=== PATIENT | female | born 1955 | race Caucasian/White ===

== ENCOUNTER → 2021-10-13 | Outpatient (CLI) | payer OTHER | LOC: LAB 13:52 | DX: Z20.822 Contact with and (suspected) exposure to COVID-19 (principal) ==

== ENCOUNTER → 2022-02-13 | Outpatient (CLI) | payer OTHER | LOC: RAD 07:49 | DX: R05.9 Cough, unspecified (principal) ==

== ENCOUNTER → 2022-03-04 | Outpatient (CLI) | payer OTHER | LOC: RAD 17:26 | DX: D32.0 Benign neoplasm of cerebral meninges (principal) | CPT/HCPCS: A9585 ==

== ENCOUNTER → 2022-03-08 | Outpatient (CLI) | payer OTHER | LOC: LAB 07:08 | DX: G40.909 Epilepsy, unspecified, not intractable, without status epilepticus (principal) ==

== ENCOUNTER → 2022-03-10 | Outpatient (CLI) | payer OTHER | LOC: LAB 07:03 | DX: G40.909 Epilepsy, unspecified, not intractable, without status epilepticus (principal) ==

== ENCOUNTER → 2022-12-30 | Outpatient (CLI) | payer OTHER ==
[2022-12-30 08:05] LABS: BASO # 0.03 K/mm3 (0.02-0.10); EOS # 0.11 K/mm3 (0.04-0.40); EOS % 2.1 % (1.0-5.0); HEMATOCRIT 42.4 % (37.0-47.0); HEMOGLOBIN 14.2 g/dL (12.5-16.0); LYMPH# 1.89 K/mm3 (1.50-4.00); MEAN CELL VOLUME 87 fl (78-100); MEAN CORPUSCULAR HEMOGLOBIN 29 pg (27-31); MEAN CORPUSCULAR HGB CONC 34 g/dL (33-37); MEAN PLATELET VOLUME 8.7 fl (7.4-10.4); MONO # 0.36 K/mm3 (0.20-0.80); NEU # 2.95 K/mm3 (1.40-6.50); PLATELET COUNT 220 K/mm3 (130-400); RED BLOOD COUNT 4.85 M/mm3 (4.10-5.30); RED CELL DISTRIBUTION WIDTH 12.6 % (11.5-14.5); WHITE BLOOD COUNT 5.4 K/mm3 (4.8-10.8)
[2022-12-30 08:09] LABS: ALBUMIN 4.3 g/dL (3.4-4.8); POTASSIUM 4.5 mmol/L (3.5-5.1)
[2022-12-30 08:10] LABS: CALCIUM 9.8 mg/dL (8.3-10.5)
[2022-12-30 08:12] LABS: TOTAL PROTEIN 6.6 g/dL (6.2-8.1)
[2022-12-30 08:13] LABS: TOTAL BILIRUBIN 1.6 mg/dL (0.2-1.2)
== END ==
LOC: LAB 07:33
PROVIDERS: Nurse Practitioner
DX: Z13.820 Encounter for screening for osteoporosis (principal); R03.0 Elevated blood-pressure reading, without diagnosis of hypertension; M54.50 Low back pain, unspecified

== ENCOUNTER → 2023-01-25 | Outpatient (CLI) | payer OTHER | LOC: LAB 07:30 | DX: G40.909 Epilepsy, unspecified, not intractable, without status epilepticus (principal); I10 Essential (primary) hypertension ==

== ENCOUNTER 2023-09-28 08:08 | Outpatient (RCR) | payer OTHER, BC | END 2023-09-29 | LOC: PT | DX: M54.50 Low back pain, unspecified (principal) ==

== ENCOUNTER → 2023-09-28 | Outpatient (CLI) | payer MEDICARE, BC | LOC: MAMMO 09:00 | DX: Z12.31 Encounter for screening mammogram for malignant neoplasm of breast (principal); Z90.11 Acquired absence of right breast and nipple ==

== ENCOUNTER 2023-09-30 08:00 | Outpatient (RCR) | payer MEDICARE, BC ==
[2023-10-17] MEDS ORDERED: LEVETIRACETAM500 M2 PO (09:17)
[2023-10-17] MEDS ORDERED: LOSARTAN POTASS25 MG PO (09:17)
[2023-10-17] MEDS ORDERED: MAXALT10 M2 PO (09:18)
[2023-10-19] MEDS ORDERED: IPRATROPIUM BROM3 M1 IH (07:58)
[2023-10-19] MEDS ORDERED: NEB (08:00)
[2023-10-19] MEDS ORDERED: LEVOFLOXACIN750 MG PO (08:01)
[2023-10-25] MEDS ORDERED: MORGIDOX 2X100100 MG PO (20:06)
== END 2023-10-30 | disposition home or self-care (01) ==
LOC: PT
DX: M54.50 Low back pain, unspecified (principal)

== ENCOUNTER 2023-10-17 10:44 | Inpatient (IN) | payer MEDICARE, BC ==
[~2023-10-17] VITALS: Ht 162.6 cm; Wt 62.9 kg
--- NOTE | 2023-10-17 10:40 | NUR ---
PT. MOVED TO ROOM 206 FOR INPATIENT ADMIT FOR DEHYDRATION AND ELEVATED WBC. 20G INT TO RIGHT AC. DAUGHTER IN ROOM WITH PT.
[~2023-10-17 10:44] MED LIST: LEVETIRACETAM500 M2 PO; LOSARTAN POTASS25 MG PO; MAXALT10 M2 PO
[2023-10-17 11:32] VITALS: BP 118/69
[2023-10-17 11:34] VITALS: BP 118/69
[2023-10-17 11:52] LABS: URINE APPEARANCE CLOUDY (CLEAR); URINE COLOR YELLOW (YELLOW)
[2023-10-17 11:53] LABS: PH-URINE 5.5 (5.0 - 8.0); URINE BILIRUBIN NEGATIVE (NEGATIVE); URINE BLOOD TRACE (NEGATIVE); URINE GLUCOSE NEGATIVE (NEGATIVE); URINE KETONE NEGATIVE (NEGATIVE); URINE NITRATE NEGATIVE (NEGATIVE); URINE PROTEIN(semi-quant) TRACE (NEGATIVE)
[2023-10-17 11:54] LABS: URINE LEUKOCYTE ESTERASE NEGATIVE (NEGATIVE); URINE WBC >50 /hpf (0-3)
[2023-10-17 11:55] LABS: URINE MUCUS PRESENT (NOT PRESENT)
[2023-10-17 13:34] VITALS: BP 101/67
--- NOTE | 2023-10-17 14:47 | NUR ---
PT. UP TO BATHROOM TO VOID, STATES SHE MISSED THE HAT. REPORTS THAT SHE DID NOT HAVE ANY LOOSE STOOLS AT THIS TIME. REPORTS PAIN IMPROVED WITH DOSE OF FENTANYL.
[2023-10-17 17:58] VITALS: BP 103/55
--- NOTE | 2023-10-17 19:16 | NUR ---
PT WAS RESTING IN BED. STATED THAT SHE WOULD LIKE SOMETHING TO HELP HER SLEEP AT NIGHT. REPORTED HAVING NO PAIN OR ANY OTHER ISSUES.
--- NOTE | 2023-10-17 20:51 | NUR ---
PT WAS IN BED. REPORTING HAVING SLIGHT PAIN ON RIGHT SIDE. FENTYNAL GIVEN FOR PAIN/SLEEP. NS RUNNING AT 125MLS. NO SIGNS OF INFILTRATION. MEDICATION TAKEN PO WITHOUT PROBLEM. ASSESSMENT COMPLETE. O2 SAT 91% ON RA. CALL LIGHT LEFT WITHIN REACH.
--- NOTE | 2023-10-17 21:13 | NUR ---
OXYGEN @2L VIA NC FOR LOWER O2 LEVELS PUT ON.
[2023-10-17 22:04] VITALS: BP 101/58
[2023-10-18 02:31] VITALS: BP 115/73; BP_SYST 155
--- NOTE | 2023-10-18 02:43 | NUR ---
PT IV BECAME DISCONECTED. CLEANED UP THE BLOOD AND CHANGED THE SHEETS. NEW DRESSING APPLIED, FLUSHED, NS RUNNING AT 125ML/HR.
[2023-10-18 05:45] VITALS: BP 101/65
--- NOTE | 2023-10-18 07:32 | NUR ---
PT. STATES THAT SHE IS FEELING BETTER THIS AM. NOTED COUGH WITH TAKING DEEP BREATHES. IVFS CONTINUE. REMOVED O2 AT THIS TIME, WILL CHECK ROOM AIR SAT.
--- NOTE | 2023-10-18 09:28 | NUR ---
PT. AMBULATED IN HALLS WITH O2 SAT MONITOR ON. O2 SAT DROPS TO 71%, PT. ASYMPTOMATIC, DENIES DIZZINESS, SOA. BACK TO ROOM AND SITS IN CHAIR, O2 SAT BACK TO 93% WITHIN 20 SECS. NOTIFIED Nola RIOJAS APRN. NO NEW ORDERS.
[2023-10-18 09:33] LABS: BASO # 0.01 K/mm3 (0.02-0.10); EOS # 0.03 K/mm3 (0.04-0.40); EOS % 0.2 % (1.0-5.0); HEMATOCRIT 31.5 % (37.0-47.0); HEMOGLOBIN 10.5 g/dL (12.5-16.0); LYMPH# 0.76 K/mm3 (1.50-4.00); MEAN CELL VOLUME 89 fl (78-100); MEAN CORPUSCULAR HEMOGLOBIN 30 pg (27-31); MEAN CORPUSCULAR HGB CONC 33 g/dL (33-37); MEAN PLATELET VOLUME 9.2 fl (7.4-10.4); MONO # 0.31 K/mm3 (0.20-0.80); NEU # 11.02 K/mm3 (1.40-6.50); PLATELET COUNT 212 K/mm3 (130-400); RED BLOOD COUNT 3.53 M/mm3 (4.10-5.30); RED CELL DISTRIBUTION WIDTH 12.5 % (11.5-14.5); WHITE BLOOD COUNT 12.2 K/mm3 (4.8-10.8)
[2023-10-18 09:40] LABS: ALBUMIN 2.7 g/dL (3.4-4.8)
[2023-10-18 09:43] LABS: TOTAL PROTEIN 5.2 g/dL (6.2-8.1)
[2023-10-18 09:44] LABS: TOTAL BILIRUBIN 0.9 mg/dL (0.2-1.2)
--- NOTE | 2023-10-18 12:40 | NUR ---
PT. AMBULATED IN HALLS WITH DAUGHTER AFTER LUNCH. O2 SAT REMAINED IN LOW 90S ON ROOM AIR.
[2023-10-18 14:15] VITALS: BP 137/80
--- NOTE | 2023-10-18 15:49 | NUR ---
PT. STATES SHE HAS A HEADACHE. STATES TYLENOL DOES NOT WORK FOR HER. REQUESTS IBUPROFEN 200MG. NOTIFIED PROVIDER, NEW ORDER RECEIVED.
--- NOTE | 2023-10-18 18:07 | NUR ---
PT. AMBULATED IN HALLS THIS AFTERNOON, O2 SAT DROPPED TO 88% ON ROOM AIR, QUICKLY RECOVERED WITH REST. IVFS STOPPED. HEADACHE RESOLVED AFTER IBUPROFEN. DENIES ANY NEEDS OR CONCERNS.
[2023-10-18 18:19] VITALS: BP 123/81
--- NOTE | 2023-10-18 19:11 | NUR ---
Report received from GLADIS Lai. Pt was resting in bed. Reported having no pain and didn't need anything at the moment. Call light within reach.
--- NOTE | 2023-10-18 19:29 | NUR ---
Report received. Patient up ad-nomi in room. Off oxygen. Looking and states feeling much better then last night. A/O x4. Denies pain. INT patent to R AC. Lungs CTA. States no cough but having nasal drainage. Assessment completed. Denies questions, wants or needs at this time.
[2023-10-18 21:49] VITALS: BP 134/63
--- NOTE | 2023-10-18 21:58 | NUR ---
Patient up to BR when RELIGIOUS EDUCATION TEACHER enters room for V/S. SAO2 intially 88% on RA. Recovers quickly to 91% when seated.
[2023-10-19 01:49] VITALS: BP 132/77
--- NOTE | 2023-10-19 01:49 | NUR ---
Oxygen saturations hovering around 80-90% on RA. Coughing desaturations around 87%. Oxygen applied at 2L/NC. SAO2 92% on 2L.
--- NOTE | 2023-10-19 05:05 | NUR ---
Awakened for vital signs. SAO2 93% on 2L/NC. Loose harsh cough noted. Denies pain or needs at this time.
[2023-10-19 05:34] VITALS: BP 132/68
[2023-10-19 05:53] LABS: BASO # 0.02 K/mm3 (0.02-0.10); EOS # 0.14 K/mm3 (0.04-0.40); EOS % 1.5 % (1.0-5.0); HEMATOCRIT 32.8 % (37.0-47.0); HEMOGLOBIN 10.8 g/dL (12.5-16.0); LYMPH# 1.14 K/mm3 (1.50-4.00); MEAN CELL VOLUME 90 fl (78-100); MEAN CORPUSCULAR HEMOGLOBIN 30 pg (27-31); MEAN CORPUSCULAR HGB CONC 33 g/dL (33-37); MEAN PLATELET VOLUME 9.1 fl (7.4-10.4); MONO # 0.47 K/mm3 (0.20-0.80); NEU # 7.24 K/mm3 (1.40-6.50); PLATELET COUNT 213 K/mm3 (130-400); RED BLOOD COUNT 3.64 M/mm3 (4.10-5.30); RED CELL DISTRIBUTION WIDTH 12.5 % (11.5-14.5); WHITE BLOOD COUNT 9.1 K/mm3 (4.8-10.8)
[2023-10-19 06:03] LABS: ALBUMIN 2.8 g/dL (3.4-4.8)
[2023-10-19 06:05] LABS: CALCIUM 8.5 mg/dL (8.3-10.5)
[2023-10-19 06:06] LABS: TOTAL PROTEIN 5.4 g/dL (6.2-8.1)
[2023-10-19 06:08] LABS: TOTAL BILIRUBIN 0.5 mg/dL (0.2-1.2)
--- NOTE | 2023-10-19 06:56 | NUR ---
Report to Susana GRIFFITH.
[2023-10-19] MEDS ORDERED: IPRATROPIUM BROM3 M1 IH (07:58)
[2023-10-19] MEDS ORDERED: NEB (08:00)
[2023-10-19] MEDS ORDERED: LEVOFLOXACIN750 MG PO (08:01)
--- NOTE | 2023-10-19 09:00 | NUR ---
ALL DISCHARGE, MEDICATION, AND FOLLOW UP INSTRUCTIONS REVIEWED WITH PATIENT. PATIENT VERBALIZES UNDERSTANDING. PT AMBULATORY FROM DEPARTMENT. ALL PATIENT BELONGINGS TAKEN WITH PATIENT AND DAUGHTER UPON DISCHARGE. NOTIFIED TO RETURN TO ED OR PCP FOR ANY NEW OR WORSENING SXS PRIOR TO FOLLOW UP APT.
== END 2023-10-19 09:09 | disposition home or self-care (01) | DRG 194 ==
LOC: MED/SURG 10:44
PROVIDERS: ADMIT Physician Assistant
DX: J18.9 Pneumonia, unspecified organism (principal); E87.1 Hypo-osmolality and hyponatremia; N39.0 Urinary tract infection, site not specified; J44.9 Chronic obstructive pulmonary disease, unspecified; I95.9 Hypotension, unspecified; D18.00 Hemangioma unspecified site; I10 Essential (primary) hypertension; N28.9 Disorder of kidney and ureter, unspecified; E80.6 Other disorders of bilirubin metabolism; E87.6 Hypokalemia; Z86.718 Personal history of other venous thrombosis and embolism; Z86.711 Personal history of pulmonary embolism
CPT/HCPCS: J0456; J0696; J1650; J3010; J7030; J7050

== ENCOUNTER 2023-10-25 16:24 | Emergency (ER) | payer MEDICARE, BC ==
[~2023-10-25] VITALS: Ht 162.6 cm; Wt 62.0 kg
[~2023-10-25 16:24] MED LIST changes: -MORGIDOX 2X100100 MG PO
[2023-10-25 17:45] LABS: D-DIMER 1.99 mg/L FEU (0.15-0.50)
[2023-10-25] MEDS ORDERED: MORGIDOX 2X100100 MG PO (20:06)
[2023-10-25 20:20] VITALS: BP 129/87
== END 2023-10-25 20:11 | disposition home or self-care (01) ==
LOC: ED 16:24
PROVIDERS: Physician Assistant
DX: J18.1 Lobar pneumonia, unspecified organism (principal); J98.11 Atelectasis; J90 Pleural effusion, not elsewhere classified; D75.839 Thrombocytosis, unspecified
CPT/HCPCS: Q9967

== ENCOUNTER → 2023-10-25 | Outpatient (CLI) | payer MEDICARE, BC ==
[~2023-10-25] MED LIST changes: +IPRATROPIUM BROM3 M1 IH; +LEVOFLOXACIN750 MG PO; +MORGIDOX 2X100100 MG PO; +NEB
[2023-10-25 09:47] LABS: BASO # 0.04 K/mm3 (0.02-0.10); EOS # 0.07 K/mm3 (0.04-0.40); HEMATOCRIT 36.7 % (37.0-47.0); HEMOGLOBIN 12.3 g/dL (12.5-16.0); LYMPH# 1.88 K/mm3 (1.50-4.00); MEAN CELL VOLUME 87 fl (78-100); MEAN CORPUSCULAR HEMOGLOBIN 29 pg (27-31); MEAN CORPUSCULAR HGB CONC 34 g/dL (33-37); MEAN PLATELET VOLUME 8.2 fl (7.4-10.4); MONO # 0.33 K/mm3 (0.20-0.80); NEU # 4.76 K/mm3 (1.40-6.50); PLATELET COUNT 424 K/mm3 (130-400); RED BLOOD COUNT 4.23 M/mm3 (4.10-5.30); RED CELL DISTRIBUTION WIDTH 12.3 % (11.5-14.5); WHITE BLOOD COUNT 7.2 K/mm3 (4.8-10.8)
[2023-10-25 09:58] LABS: ALBUMIN 3.6 g/dL (3.4-4.8)
[2023-10-25 09:59] LABS: CALCIUM 8.9 mg/dL (8.3-10.5)
[2023-10-25 10:01] LABS: TOTAL PROTEIN 6.4 g/dL (6.2-8.1)
[2023-10-25 10:02] LABS: TOTAL BILIRUBIN 0.8 mg/dL (0.2-1.2)
== END ==
LOC: RAD 09:15 → LAB 09:15
PROVIDERS: Physician Assistant
DX: J18.9 Pneumonia, unspecified organism (principal); J90 Pleural effusion, not elsewhere classified

== ENCOUNTER → 2023-11-28 | Outpatient (CLI) | payer MEDICARE, BC ==
[~2023-11-28] MED LIST changes: +MORGIDOX 2X100100 MG PO
[2023-11-28 08:17] LABS: CALCIUM 9.1 mg/dL (8.3-10.5)
== END ==
LOC: LAB 08:01
PROVIDERS: Internal Medicine Pulmonary Disease
DX: Z87.01 Personal history of pneumonia (recurrent) (principal)

== ENCOUNTER → 2023-11-30 | Outpatient (CLI) | payer MEDICARE, BC | LOC: RAD 08:44 | DX: J18.1 Lobar pneumonia, unspecified organism (principal) | CPT/HCPCS: Q9967 ==